=== PATIENT | female | born 1935 | race Caucasian/White ===

== ENCOUNTER → 2016-12-16 | Outpatient (CLI) | payer OTHER, MEDICARE ==
[~2016-12-16] MED LIST: ASPEC81 PO; ASPI81TA21 PO; ATEN-173 PO; ATOR10TA88 PO; CEPH500C2 PO; DXM/4 PO; FOLI1TAB7 PO; HYDR25TA4 PO; LEVO75TA5 PO; MELO7.5T5 PO; MELO7.5T6 PO; MIRT15TA2 PO; NTRGSL/4 UT; NXM/40 PO; ONDA8TAB6 PO; POLYSOL4 OP; PROC1TAB5 PO; SULF800T23 PO
--- NOTE | 2016-12-16 11:07 | DIAGNOSTIC IMAGING REPORT ---
PET/CT SKULL-THIGH CLINICAL HISTORY: LUNG CANCER COMPARISON STUDY: 08/17/2016 FINDINGS: The patient was injected with 15.4 mCi of F 18 labeled FDG. Findings standard induction phase, PET/CT scanning was performed from the skull base to the upper thigh region. Activity within the neck is felt to be physiologic. Within the chest, there is been interval decrease in the size of the FDG avid right lower lobe pulmonary mass which currently measures 4.8 x 2.5 cm. This has an SUV maximum of 8.2. There is been slight interval increase in the size of the small right pleural effusion. There is a 1 cm FDG avid subcarinal lymph node with SUV maximum of 4. This is slightly smaller in size. There are postmastectomy changes on the right. There is no evidence for FDG avid hepatic or adrenal gland activity. Within the abdomen and pelvis there is physiologic urinary tract and bowel activity. There is no pathologic skeletal activity. IMPRESSION: 1. Interval decrease in the size of the FDG avid right lower lobe pulmonary mass currently measuring 4.8 x 2.5 cm (6.3 x 4.2 cm in July 2016) 2. The right lower lobe pulmonary mass remains FDG avid with SUV maximum of 8.2. 3. Slight decrease in the size of the FDG avid subcarinal lymph node with SUV maximum of 4 (prior SUV maximum of 7). 4. Slight increase in the size of the small right pleural effusion which is mildly FDG avid with SUV maximum of 1.8 Electronically signed by: Dejuan Ochoa M.D. 12/16/2016 11:05 AM Dictated Date/Time: 12/16/2016 10:51 AM
== END | disposition home or self-care (01) ==
LOC: C.PET 08:59
PROVIDERS: ATTEND Internal Medicine Hematology
DX: C34.31 Malignant neoplasm of lower lobe, right bronchus or lung (principal); C79.31 Secondary malignant neoplasm of brain

== ENCOUNTER → 2017-01-04 | Outpatient (CLI) | payer OTHER, MEDICARE ==
[~2017-01-04] MED LIST changes: +GADAVIST IV PRN
--- NOTE | 2017-01-04 09:04 | DIAGNOSTIC IMAGING REPORT ---
MRI OF THE BRAIN WITHOUT AND WITH IV CONTRAST CLINICAL HISTORY: History of lung and breast cancer. COMPARISON STUDY: MRI the brain September 16, 2016. TECHNIQUE: Utilizing a 0.7 Shelia open magnet and dedicated coil, multiplanar, multiecho imaging of the brain was performed pre and postcontrast administration. IV administration of 4.5 mL of Gadavist contrast was uneventful. FINDINGS: No areas of restricted diffusion are present. No acute intracranial hemorrhage, midline shift or mass effect is present. An enhancing lesion at the morrison-white interface of the posterior right frontal lobe is again noted. On axial postcontrast images, this appears slightly more prominent than on exam of September 16, 2016 but on coronal post contrast images appears slightly less prominent. Overall, this is likely similar in size to prior exam, measuring 7 mm. Associated T2 hyperintensity within the adjacent brain parenchyma has increased in extent since prior examination. No additional intracranial lesions are identified on this exam. Ventricular system is stable. The basilar cisterns are patent. There are no extra-axial collections. Flow-voids for the major intracranial vessels are present with their no calvarial lesions. IMPRESSION: 1. No significant change in size of the 7 mm enhancing lesion within the right posterior frontal lobe since MRI of September 16, 2016. This lesion is highly suggestive of metastatic disease. Interval increase in mild associated edema. 2. No new lesions identified. Electronically signed by: Enrique De La Torre M.D. 01/04/2017 9:03 AM Dictated Date/Time: 01/04/2017 8:53 AM
== END | disposition home or self-care (01) ==
LOC: C.OPENMRI 07:57
PROVIDERS: ATTEND Radiology Radiation Oncology
DX: G93.9 Disorder of brain, unspecified (principal); Z85.118 Personal history of other malignant neoplasm of bronchus and lung; Z85.3 Personal history of malignant neoplasm of breast

== ENCOUNTER → 2017-03-10 | Outpatient (CLI) | payer OTHER, MEDICARE ==
[~2017-03-10] MED LIST changes: +ATOR10TA82 PO; -ATOR10TA88 PO; -GADAVIST IV PRN
--- NOTE | 2017-03-10 10:56 | DIAGNOSTIC IMAGING REPORT ---
PET/CT HISTORY: LUNG CANCER TECHNIQUE: PET/CT was performed from the base of the skull through the pelvis following the intravenous administration of 12.1 mCi of F18-FDG. Non-contrast CT imaging was performed over the same range without breath-hold for attenuation correction of PET images and anatomic correlation, but not for primary interpretation as it is not of standard diagnostic quality. CT DOSE: COMPARISON: PET CT 10/16/2017. FINDINGS: HEAD AND NECK: There is no FDG-avid disease or significant lymphadenopathy in the imaged portions of the head and the neck. CHEST: Slight decrease in size and FDG uptake right lung mass which measures 4.6 x 1.9 cm, previously measuring 4.8 x 2.5 cm. This demonstrates an SUV max of 4.3, previously demonstrating an SUV max of 8.2. Small right pleural effusion has slightly increased in size. Mild FDG uptake associated with the right hilar, precarinal, and subcarinal lymph nodes has also slightly improved. SUV max of the subcarinal node measures 3.5. The subcarinal lymph node measures approximately 1.3 cm in short axis diameter. This is not significantly changed. Stable fibrotic/scarlike densities within the right lung apex without significant FDG uptake. Prior right mastectomy. ABDOMEN/PELVIS: Below the diaphragm, tracer is distributed physiologically in the gastrointestinal and genitourinary tracts. There is no significant lymphadenopathy and no FDG-avid disease. MUSCULOSKELETAL: Abnormal trabecular pattern within the sternum, right ribs, right scapula, and proximal right humerus which remains unchanged. This does not demonstrate abnormal FDG uptake. This favors post radiation change. Focal area of destruction within the mid sternum is also stable and favors an area of radiation osteonecrosis. No abnormal FDG uptake. There is a stable 11 mm soft tissue nodule within the proximal shaft of the left humerus. This does not demonstrate abnormal FDG uptake IMPRESSION: 1. Slight decrease in size in and FDG uptake associated with the right lung mass. 2. Slight decrease in FDG uptake associated with the right hilar, precarinal, and subcarinal lymph nodes. 3. Increase in size in the small right pleural effusion. 4. Stable 11 mm soft tissue nodule within the proximal shaft of the left humerus. This does not demonstrate abnormal FDG uptake. Electronically signed by: Keagan Sterling M.D. 03/10/2017 10:53 AM Dictated Date/Time: 03/10/2017 10:33 AM
== END | disposition home or self-care (01) ==
LOC: C.PET 07:51
PROVIDERS: ATTEND Internal Medicine Hematology
DX: C34.31 Malignant neoplasm of lower lobe, right bronchus or lung (principal); C79.31 Secondary malignant neoplasm of brain

== ENCOUNTER → 2017-04-07 | Outpatient (CLI) | payer OTHER, MEDICARE ==
[2016-12-02 13:08] VITALS: BP 118/68; PULSE 88
[~2017-04-07] MED LIST changes: +ACET-1257 PO
[2017-04-07 13:28] VITALS: BP 105/87; PULSE 97; TEMP 36.7; O2SAT 98
--- NOTE | 2017-04-07 16:12 | Radiation Oncology Follow-Up ---
Radiation Oncology Follow-Up Date of Visit April 07, 2017. (Niru Haji PA-C) Reason For Visit One-month follow-up (Niru Haji PA-C) Radiation Completion Date SBRT 10/15/16 (Niru Haji PA-C) Diagnosis (1) Breast cancer Permanent Comment: Treatment Notes: Diagnosed at the age of 21. Treated with mastectomy and postmastectomy radiation therapy with no evidence of recurrence. Radiation therapy at [facility] Last Edited By: Emily Mtz on Sep 25, 2016 15 :05 (2) Lung cancer Stage: IV Permanent Comment: STAGING: Lung, RML, NSCLC, [id number], stage IV with solitary brain metastasis Treatment: Status post stereotactic radiation therapy completed 10/15/2016 received 1800 cGy Last Edited By: Niru Haji on Dec 02, 2016 14:37 (Niru Haji PA-C) History of Present Illness Ms. Cyr is an 81-year-old female with a remote history of right breast cancer treated with mastectomy and postmastectomy radiation therapy 60 years ago. More recently, she was complaining of a cough and did have a chest x-ray performed by her primary care physician which revealed a right lung mass. The patient then underwent CT staging scans of the chest abdomen pelvis on 2015 which showed a right lung mass, and large subcarinal lymph node and subcentimeter paratracheal lymph nodes but no evidence of distant metastatic disease. The patient underwent a PET/CT scan on 08/17/2016 which did reveal a 6.3 cm FDG avid right lower lobe mass consistent with bronchogenic malignancy. Also noted was a single FDG avid 1.7 cm subcarinal lymph node. There is no evidence of any distant metastatic disease. The patient was subsequently referred to Dr. Gleason who recommended a CT guided needle biopsy which completed in 08/21/2016 which revealed poorly differentiated non-small cell lung carcinoma. The patient was then brought for a bronchoscopy on 08/28/2016 to biopsy the subcarinal lymph node and this lymph node was biopsied in addition to levels L4, station 7 and station 10. The biopsies of all the lymph nodes were positive for metastatic poorly differentiated non-small cell lung carcinoma. The patient was subsequently referred to Dr. Gavino Mtz for consideration of upfront chemotherapy due to the patient's previous history of radiation therapy to the right chest. Dr. Mtz completed the staging workup with a MRI of the brain which was completed on 09/16/2016 which revealed a 7 mm enhancing lesion in the right frontal lobe with mild associated vasogenic edema. We are now seeing the patient in consultation discuss the role of radiation therapy. Currently, the patient's relatively well overall. She denies any headaches or any focal neurologic deficits. She states she continues to have a cough. She denies any hemoptysis. She denies any fevers, chills or night sweats. She other complaints. Her studies were reviewed and she was found to be a candidate for stereotactic radiation therapy. This was given 10/15/2016. She received 1800 cG (Niru Haji PA-C) Interim History She's been doing well over this past month. She denies any problems with headaches or dizziness. There is been no change in vision. No problems with nausea. She feels that she does have some slight increase in shortness of breath. She describes some orthostatic changes with standing quickly. She is followed closely in medical oncology. She has had recheck scanning. She had a PET scan 04/09/2017. This showed slight decrease in size and FDG uptake associated with the right lung mass. Slight decrease in FDG uptake associated with right hilar, precarinal, and subcarinal lymph nodes. Increase in size in the small right pleural effusion. Stable 11 mm soft tissue nodule within the proximal shaft of the left humerus. This does not demonstrate abnormal FDG uptake. She has a lesion of her skin of the lower sternum. This is been followed. She had a biopsy performed 03/11/2017. This revealed spongiosis with intraepidermal neutrophils and papillary dermal edema with mixed dermal inflammatory infiltrate. There are 2 small wounds are continuing to heal. She had a recheck MRI of the brain 01/04/2017. Showed no significant change in the size of the 7 mm enhancing lesion within the right posterior frontal lobe since MRI of 09/16/2016. (Niru Haji PA-C) Allergies Coded Allergies: Nickel (Verified Allergy, Severe, rash, 08/28/16) Ibuprofen (Verified Allergy, Intermediate, HIVES, 08/28/16) PER RECORDS Penicillins (Verified Allergy, Intermediate, RASH, 08/28/16) Latex1 -Allergic Contact Dermititis (Verified Allergy, Mild, RASH, 08/28/16 ) Adhesives (Verified Adverse Reaction, Intermediate, RASH, 08/28/16) PER RECORDS Lisinopril (Verified Adverse Reaction, Mild, COUGH, 08/28/16) PER RECORDS Home Medications Scheduled Aspirin Enteric Coated (Ecotrin Or Generic *), 81 MG PO QAM Atenolol (Tenormin), 25 MG PO QAM Atorvastatin (Lipitor), 10 MG PO AFTERNOON Dexamethasone (Decadron), 4 TAB PO DAILY Esomeprazole Magnesium (Nexium), 40 MG PO QAM Folic Acid (Folvite), 1 TAB PO DAILY Levothyroxine Sodium (Levothyroxine Sodium), 1 TAB PO DAILY Nitroglycerin (Nitrostat), 0.4 MG UT PRN Scheduled PRN Meloxicam (Mobic), 7.5 MG PO DAILY PRN for Pain Mirtazapine Soltab (Remeron Soltab), 15 MG PO HS PRN for Sleep Ondansetron Hcl (Zofran), 8 MG PO TID PRN for Nausea Polyethylene Glycol-Propylene (Systane), 1 DROPS OP QID PRN for Documentation Prochlorperazine Maleate (Compazine), 1 TAB PO Q6 PRN for Nausea Review of Systems Gastrointestinal: Symptoms: WNL Oral: Symptoms: No Problems Respiratory: Symptoms: WNL Other Respiratory: MANDEL, dry cough at times Urinary: Symptoms: WNL, Nocturia Comments: Nocturia x 5 Skin: Symptoms: No Problems Other Skin Symptoms: " occ skin is real sensative " (Niru Haji PA-C) Physical Exam Vital Signs Date Time Temp Pulse Resp B/P Pulse Ox O2 Delivery O2 Flow Rate FiO2 04/07/17 13:28 36.7 97 16 105/87 98 Pain: Side: Bilateral Patient Pain Scale: 0 - 10 Initial Pain Intensity: 0.0 Fatigue: None General Appearance: no apparent distress Eyes: normal inspection, EOMI ENT: normal ENT inspection, hearing grossly normal Neck: no adenopathy Respiratory/Chest: lungs clear, no respiratory distress, no accessory muscle use, + decreased breath sounds, + pertinent finding (raised firm lesion of the lower sternum. 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 SC: C.PET Att Phy: Gavino Mtz M.D. Report #: [id number] Svetlana Phy: Joie Mtz M.D. Test: PETCTST Admit Phy: Occupational Therapy Director: DAMIR Interpreting Phy: Keagan Sterling MD Diagnosis: MALIGNANT NEOPLASM,LOWER LOBE,R LUNG Ordering Phy: Gavion Mtz M.D. Service Date: 03/10/17 Admit Date: 03/10/17 MNE: [id number] CONF: DICTATED BY: Keagan Sterling M.D.]] CC: Gavino Mtz M.D. Patel, Manisha N., M.D. Endcc: [~ rep ct add3]] PET/CT HISTORY: LUNG CANCER TECHNIQUE: PET/CT was performed from the base of the skull through the pelvis following the intravenous administration of 12.1 mCi of F18-FDG. Non-contrast CT imaging was performed over the same range without breath-hold for attenuation correction of PET images and anatomic correlation, but not for primary interpretation as it is not of standard diagnostic quality. CT DOSE: COMPARISON: PET CT 10/16/2017. FINDINGS: HEAD AND NECK: There is no FDG-avid disease or significant lymphadenopathy in the imaged portions of the head and the neck. CHEST: Slight decrease in size and FDG uptake right lung mass which measures 4.6 x 1.9 cm, previously measuring 4.8 x 2.5 cm. This demonstrates an SUV max of 4.3, previously demonstrating an SUV max of 8.2. Small right pleural effusion has slightly increased in size. Mild FDG uptake associated with the right hilar, precarinal, and subcarinal lymph nodes has also slightly improved. SUV max of the subcarinal node measures 3.5. The subcarinal lymph node measures approximately 1.3 cm in short axis diameter. This is not significantly changed. Stable fibrotic/scarlike densities within the right lung apex without significant FDG uptake. Prior right mastectomy. ABDOMEN/PELVIS: Below the diaphragm, tracer is distributed physiologically in the gastrointestinal and genitourinary tracts. There is no significant lymphadenopathy and no FDG-avid disease. MUSCULOSKELETAL: Abnormal trabecular pattern within the sternum, right ribs, right scapula, and proximal right humerus which remains unchanged. This does not demonstrate abnormal FDG uptake. This favors post radiation change. Focal area of destruction within the mid sternum is also stable and favors an area of radiation osteonecrosis. No abnormal FDG uptake. There is a stable 11 mm soft tissue nodule within the proximal shaft of the left humerus. This does not demonstrate abnormal FDG uptake IMPRESSION: 1. Slight decrease in size in and FDG uptake associated with the right lung mass. 2. Slight decrease in FDG uptake associated with the right hilar, precarinal, and subcarinal lymph nodes. 3. Increase in size in the small right pleural effusion. 4. Stable 11 mm soft tissue nodule within the proximal shaft of the left humerus. This does not demonstrate abnormal FDG uptake. Electronically signed by: Keagan Sterling M.D. 03/10/2017 10:53 AM Dictated Date/Time: 03/10/2017 10:33 AM Patient: THOMAS CYR Address1: [address] [place] [address] Rec: [id number] Address2: [facility] ID: [id number] [facility] Zip: [place] [address] Date: 1935 Sex: F Room/Bed: Ref Phy: Joie Mtz M.D. SC: WEN Att Phy: Niru Haji PA-C Report #: [id number] Svetlana Phy: Joie Mtz M.D. Test: [facility] Admit Phy: Occupational Therapy Director: TANO Interpreting Phy: Enrique De La Torre MD Diagnosis: HX OF LUNG CA, BREAST CA Ordering Phy: Niru Haji PA-C Service Date: 01/04/17 Admit Date: 01/04/17 MNE: [id number] CONF: DICTATED BY: Enrique De La Torre MD]] CC: Niru Haji PA-C Patel, Manisha N., M.D. Endcc: [~ rep ct add3]] MRI OF THE BRAIN WITHOUT AND WITH IV CONTRAST CLINICAL HISTORY: History of lung and breast cancer. COMPARISON STUDY: MRI the brain September 16, 2016. TECHNIQUE: Utilizing a 0.7 Shelia open magnet and dedicated coil, multiplanar, multiecho imaging of the brain was performed pre and postcontrast administration. IV administration of 4.5 mL of Gadavist contrast was uneventful. FINDINGS: No areas of restricted diffusion are present. No acute intracranial hemorrhage, midline shift or mass effect is present. An enhancing lesion at the morrison-white interface of the posterior right frontal lobe is again noted. On axial postcontrast images, this appears slightly more prominent than on exam of September 16, 2016 but on coronal post contrast images appears slightly less prominent. Overall, this is likely similar in size to prior exam, measuring 7 mm. Associated T2 hyperintensity within the adjacent brain parenchyma has increased in extent since prior examination. No additional intracranial lesions are identified on this exam. Ventricular system is stable. The basilar cisterns are patent. There are no extra-axial collections. Flow-voids for the major intracranial vessels are present with their no calvarial lesions. IMPRESSION: 1. No significant change in size of the 7 mm enhancing lesion within the right posterior frontal lobe since MRI of September 16, 2016. This lesion is highly suggestive of metastatic disease. Interval increase in mild associated edema. 2. No new lesions identified. Electronically signed by: Enrique De La Torre M.D. 01/04/2017 9:03 AM Dictated Date/Time: 01/04/2017 8:53 AM (Niru Haji PA-C) Assessment & Plan Plan: The above studies were reviewed. Patient was scheduled for recheck MRI of the brain. This will be performed on 04/19/2017. She'll be notified as to results plan we'll plan to have her return in 4 months with a MRI prior to that visit. Continue follow-up with Dr. Mtz medical oncology. She continues on chemotherapy. Additional scanning per Dr. Ena Mtz. She'll call our office if she has any questions or concerns in the interim. (Niru Haji PA-C) I agree with note created by Niru Haji PA-C. I reviewed the patient's chart and information with her. I have examined and evaluated the patient. I reviewed relevant clinical information and answered the patient's and/or family' s questions. (Veeral. Mtz MD) Total Time In Follow-Up I spent 20 minutes speaking to the patient and performing examination. I spent 15 minutes reviewing information in completing this note. (Niru Haji PA-C) I spent 15 minutes examining and counseling the patient. (Veeral. Mtz MD) Copy To Gavino Mtz M.D.; Joie Mtz M.D.; Aneesh Gleason MD
== END | disposition home or self-care (01) ==
LOC: C.ONC 13:09
PROVIDERS: ATTEND Physician Assistant Medical
DX: Z08 Encounter for follow-up examination after completed treatment for malignant neoplasm (principal); Z92.3 Personal history of irradiation; Z85.118 Personal history of other malignant neoplasm of bronchus and lung; Z85.3 Personal history of malignant neoplasm of breast

== ENCOUNTER → 2017-04-19 | Outpatient (CLI) | payer OTHER, MEDICARE ==
[~2017-04-19] MED LIST changes: +GADAVIST IV PRN
--- NOTE | 2017-04-19 13:08 | DIAGNOSTIC IMAGING REPORT ---
Brain MRI WITH AND WITHOUT CONTRAST HISTORY: METASTATIC LUNG CA TO BRAIN TECHNIQUE: Multiplanar multisequence MRI of the brain was performed both before and after the intravenous administration of contrast. COMPARISON STUDY: Brain MRI 01/04/2017. FINDINGS: Decrease in size in a 5 mm enhancing lesion within the right precentral gyrus. This previous measured 7 mm. No new enhancing lesions identified within the brain. No hematoma, midline shift, or acute infarct. The paranasal sinuses and mastoid air cells are clear. The major vascular flow-voids at the skull base are well-maintained. Mild atrophic changes within the brain. The vasogenic edema surrounding the enhancing lesion has also improved. IMPRESSION: Decrease in size in the 5 mm enhancing lesion within the right posterior frontal lobe. The surrounding vasogenic edema has also improved. No new metastatic lesions identified. Electronically signed by: Keagan Sterling M.D. 04/19/2017 1:07 PM Dictated Date/Time: 04/19/2017 1:03 PM
== END | disposition home or self-care (01) ==
LOC: C.OPENMRI 10:46
PROVIDERS: ATTEND Physician Assistant Medical
DX: C79.31 Secondary malignant neoplasm of brain (principal); C34.31 Malignant neoplasm of lower lobe, right bronchus or lung

== ENCOUNTER → 2017-06-14 | Outpatient (CLI) | payer OTHER, MEDICARE ==
[~2017-06-14] MED LIST changes: -ACET-1257 PO; -ATOR10TA82 PO; +ATOR10TA88 PO; -GADAVIST IV PRN
--- NOTE | 2017-06-14 13:26 | DIAGNOSTIC IMAGING REPORT ---
ADDENDUM Focal activity in the region of the anterior floor the mouth is felt to most likely be artifactual either related to the presence of amalgam or muscle activity during the exam. Correlation with physical exam to exclude oral cavity lesion. Electronically signed by: Petros Barton M.D. 06/14/2017 1:32 PM Dictated Date/Time: 06/14/2017 1:31 PM ORIGINAL REPORT PET/CT CLINICAL HISTORY: 82-year-old female with history of non-small cell lung carcinoma. TECHNIQUE: PET/CT was performed from the base of the skull through the pelvis following the intravenous administration of 13.21 mCi of F18-FDG. Non-contrast CT imaging was performed over the same range without breath-hold for attenuation correction of PET images and anatomic correlation, but not for primary interpretation as it is not of standard diagnostic quality. CT DOSE: 1156.30 mGy-cm. COMPARISON: 03/10/2017. FINDINGS: HEAD AND NECK: There is no FDG-avid disease or significant lymphadenopathy in the imaged portions of the head and the neck. Left supraclavicular subcentimeter lymph node demonstrates mildly increased metabolic activity with a max SUV of 2.6. This was not present on prior exam. CHEST: Postsurgical changes of right mastectomy. Atherosclerosis of the aortic arch. Mildly enlarged heart. Aortic valve and coronary artery calcification. Small pericardial effusion. FDG avid subcarinal lymph node is poorly delineated and not easily measured (max SUV 4.2), previously 1.3 cm in the short axis (max SUV 3.5). Slight interval increase in size of the now moderate right pleural effusion, which is photopenic. Interval development of trace left pleural effusion. Dominant right lung mass extends from the region of the right hilum peripherally and measures 5.2 x 2.9 cm (max SUV 6.3), previously 4.6 x 1.9 (max SUV 4.3). Reticulation at the right apex likely represents cicatrizing atelectasis from post radiation change, stable from prior. No new FDG avid pulmonary nodule. ABDOMEN/PELVIS: Below the diaphragm, tracer is distributed physiologically in the gastrointestinal and genitourinary tracts. There is no significant lymphadenopathy and no FDG-avid disease. Congenital hypoplasia of the medial segments of the left hepatic lobe. Subcentimeter hypodensity in the right hepatic lobe is photopenic, likely hepatic cyst or hamartoma. Mild bilateral pelviectasis with urothelial thickening, unchanged. Distended bladder. Sigmoid diverticulosis. Inspissated material in the distal small bowel likely suggest delayed transit. No bowel obstruction. Small hiatal hernia. Degenerative changes in the spine. MUSCULOSKELETAL: Previously noted heterogeneity of the trabecular pattern within the sternum, right ribs, right scapula, and proximal right humerus likely postradiation change given the photopenic FDG uptake. 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 Stable 11 mm soft tissue nodule within the proximal shaft of the left humerus, which is not metabolically active. IMPRESSION: 1. Slight interval increase in size of the primary right lung neoplasm with slight increase FDG avidity combined with slight increase FDG avidity of a metastatic subcarinal lymph node suggests progression of disease. Additionally, new FDG avid left supraclavicular lymph node. 2. Increasing moderate right pleural effusion new trace left pleural effusion. 3. Persistent urothelial thickening could suggest cystitis, now chronic. Correlate with urinalysis. Electronically signed by: Petros Barton M.D. 06/14/2017 1:25 PM Dictated Date/Time: 06/14/2017 1:06 PM
== END | disposition home or self-care (01) ==
LOC: C.PET 07:58
PROVIDERS: ATTEND Internal Medicine Hematology
DX: J90 Pleural effusion, not elsewhere classified (principal); C34.31 Malignant neoplasm of lower lobe, right bronchus or lung; C79.31 Secondary malignant neoplasm of brain

== ENCOUNTER → 2017-06-18 | Outpatient (CLI) | payer OTHER, MEDICARE ==
--- NOTE | 2017-06-18 09:29 | DIAGNOSTIC IMAGING REPORT ---
CHEST 2 VIEWS ROUTINE CLINICAL HISTORY: J90 Pleural [id number] pleural effusion COMPARISON STUDY: 08/28/2016 FINDINGS: Unchanging mass right base. Small right pleural effusion. Slight decrease in density right apex. Left lung remains generally clear. Slight increase in volume of right effusion. IMPRESSION: Slight increase in volume of right effusion. Unchanging to slightly diminished density right apex with stable masslike changes right base The above report was generated using voice recognition software. It may contain grammatical, syntax or spelling errors. Electronically signed by: Jhon Rockwell M.D. 06/18/2017 9:28 AM Dictated Date/Time: 06/18/2017 9:26 AM
== END | disposition home or self-care (01) ==
LOC: C.RAD1850 08:54
PROVIDERS: ATTEND Surgery
DX: J90 Pleural effusion, not elsewhere classified (principal)

== ENCOUNTER 2017-06-24 12:25 | Day surgery (SDC) | payer OTHER, MEDICARE ==
[~2017-06-24] VITALS: Ht 170.2 cm; Wt 47.0 kg
[~2017-06-24 12:25] MED LIST changes: -ASPI81TA21 PO; -ATOR10TA88 PO; -CEPH500C2 PO; -HYDR25TA4 PO; -LEVO75TA5 PO; -MELO7.5T6 PO; -NTRGSL/4 UT; -NXM/40 PO; -SULF800T23 PO
--- NOTE | 2017-06-24 12:47 | Discharge Instructions ---
Discharge Instructions Date of Service Jun 24, 2017. Visit Reason for Visit: Pleural Effusion *Right* Discharge Discharge Diagnosis / Problem: Pleural Effusion *Right* Discharge Goals Goal(s): Learn about illness Activity Recommendations Activity Limitations: resume your previous activity (in 24 hours) Anesthesia . Post Anesthesia Instructions: If you have had General Anesthesia or IV Sedation: * Do not drive today. * Resume driving when surgeon permits. * Do not make important decisions or sign legal documents today. * Call surgeon for: 1. Temperature elevations greater than 101 degrees F. 2. Uncontrollable pain. 3. Excessive bleeding. 4. Persistent nausea and vomiting. 5. Medication intolerance (nausea, vomiting or rash). * For nausea and vomiting use only clear liquids such as: tea, soda, bouillon until nausea subsides, then gradually increase diet as tolerated. * If you have any concerns or questions, call your surgeon's office. If physician is unavailable and it is an emergency, call 911 or go to the nearest emergency room. . Instructions / Follow-Up Instructions / Follow-Up 1. Keep your scheduled appointment with Dr. Gleason on July 01, 2017 @9:45 am. Go to hospital one hour before appointment. to have a chest x-ray taken Diet Recommendations Recommended Home Diet: resume previous diet Pending Studies Studies pending at discharge: no Medical Emergencies . Who to Call and When: Medical Emergencies: If at any time you feel your situation is an emergency, please call 911 immediately. . Non-Emergent Contact Non-Emergency issues call your: Surgeon Call Non-Emergent contact if: you have a fever, your pain is not controlled . . "Provider Documentation" section prepared by Lisandro Galloway. .
[2017-06-24 12:55] VITALS: BP 144/69; PULSE 94; TEMP 36.6; O2SAT 98; Ht 170.2 cm; Wt 47.0 kg
[2017-06-24 13:40] VITALS: BP 131/63; PULSE 94; TEMP 37.2; O2SAT 98
[2017-06-24 13:54] LABS: ISTAT ARTERIAL BLOOD GAS HCO3 26 meq/L (19-24); ISTAT ARTERIAL BLOOD GAS PCO2 37 mmHg (35-46); ISTAT ARTERIAL BLOOD GAS PO2 77 mmHg (80-95); ISTAT ARTERIAL BLOOD GAS pH 7.46 (7.35-7.45); ISTAT CARBON DIOXIDE 27 mEq/l (24-31); ISTAT DELIVERY SYSTEM Room Air; ISTAT SITE R Radial
[2017-06-24 13:58] VITALS: BP 121/61; PULSE 90; TEMP 36.8; O2SAT 97
--- NOTE | 2017-06-24 14:14 | DIAGNOSTIC IMAGING REPORT ---
CHEST ONE VIEW PORTABLE CLINICAL HISTORY: 82 years-old Female presenting with s/p thoracentesis. TECHNIQUE: Portable upright AP view of the chest was obtained. COMPARISON: 06/18/2017. FINDINGS: Atherosclerosis of the aortic arch with tortuosity of the ascending aorta. Elevation of the right hemidiaphragm. Increased density of the right lower lung mass likely secondary to volume loss due to new small right pneumothorax. Persistent right pleural fluid. Left lung and pleural space essentially clear. Degenerative changes of the right glenohumeral joint. Chronic deformity of the right clavicle. IMPRESSION: 1. Interval development of new small right pneumothorax with persistent right pleural fluid. 2. Apparent increased density of the known right lung mass likely due to right lung volume loss. The report will be called/faxed according to standard departmental protocol. Electronically signed by: Petros Barton M.D. 06/24/2017 2:12 PM Dictated Date/Time: 06/24/2017 2:08 PM
[2017-06-24 14:24] VITALS: BP_SYST 119; BP_SYST 137; BP_DIAS 62; BP_DIAS 66; PULSE 88; PULSE 90; TEMP 36.8; O2SAT 97
[2017-06-24 15:23] LABS: PLEURAL FLUID TOTAL PROTEIN 4.3 g/dl
[2017-06-24 15:50] LABS: PLEURAL FLUID APPEARANCE CLOUDY; PLEURAL FLUID COLOR AMBER; PLEURAL FLUID SOURCE RIGHT PLEURAL; PLEURAL FLUID WBC (A) 1022 /uL
[2017-06-24 15:51] LABS: PLEURAL FLUID POLYNUC 7.6 %
[2017-06-24 15:52] LABS: PLEURAL FLUID MONONUC RELAT 92.4 %
--- NOTE | 2017-06-24 21:59 | OPERATIVE REPORT ---
DATE OF OPERATION: 06/24/2017 PROCEDURE: Right thoracentesis. SURGEON: Dr. Gleason. MAINTENANCE OF WAY SUPERINTENDENT: RUPESH Blackwell. ANESTHESIA: Local. SPECIFICS OF PROCEDURE: A right thoracentesis under ultrasound guidance. PROCEDURE: The patient was brought to the medical treatment unit and seated on the side of the bedside stretcher. An ultrasound was used to localize a window. There really was not much fluid. Her right hemidiaphragm was elevated a good deal, which accounts for her x-ray findings. There was fluid, though. A window was selected medial to the scapula and she was prepped and draped in the usual sterile fashion. A 25-guage needle and 1% Xylocaine was used to anesthetize the skin and subcutaneous tissues. A large bore needle was used to anesthetize the deeper tissues and then free flowing fluid was obtained. A guidewire was inserted and needle removed. A triple lumen catheter was slid over the guidewire and the guidewire removed and approximately 500 mL of a rust-colored serous fluid was drained. She really had very little in the way of pain. We removed the catheter. She had no bleeding. A chest x-ray showed better expansion of her lung. The chest x-ray did show an area, which, I believe, represents trapped lung laterally. it coincides with the fluid, which was in there before. I am not concerned about this. She tolerated it well. We will see her back next week with an x-ray and to go over her results. I attest to the content of the Intraoperative Record and any orders documented therein. Any exception s are noted below.
[2017-08-06] MEDS ORDERED: ATOR10TA88 PO (07:42)
[2017-08-06] MEDS ORDERED: NTRGSL/4 UT (09:00)
[2017-08-06] MEDS ORDERED: NXM/40 PO (12:41)
[2017-08-06] MEDS ORDERED: LEVO75TA5 PO (13:25)
[2017-08-10] MEDS ORDERED: DXM/4 PO (08:24)
[2017-08-10] MEDS ORDERED: MELO7.5T6 PO (08:24)
[2017-08-10] MEDS ORDERED: ONDA8TAB6 PO (08:24)
[2017-08-10] MEDS ORDERED: MIRT15TA2 PO (08:24)
[2017-08-13] MEDS ORDERED: SULF800T23 PO (14:31)
[2017-08-24] MEDS ORDERED: SULF800T23 PO (09:08)
[2017-08-30] MEDS ORDERED: SULF800T23 PO (13:20)
== END 2017-06-24 15:00 | disposition home or self-care (01) ==
LOC: C.ACU 12:25
PROVIDERS: ATTEND Surgery
DX: J90 Pleural effusion, not elsewhere classified (principal); J93.9 Pneumothorax, unspecified; R91.8 Other nonspecific abnormal finding of lung field

== ENCOUNTER → 2017-06-30 | Outpatient (CLI) | payer OTHER, MEDICARE ==
[~2017-06-30] MED LIST changes: +ASPI81TA21 PO; +ATOR10TA88 PO; +CEPH500C2 PO; -FOLI1TAB7 PO; +HYDR25TA4 PO; +LEVO75TA5 PO; -MELO7.5T5 PO; +MELO7.5T6 PO; +NTRGSL/4 UT; +NXM/40 PO; +SULF800T23 PO
--- NOTE | 2017-06-30 14:13 | DIAGNOSTIC IMAGING REPORT ---
CHEST 2 VIEWS ROUTINE CLINICAL HISTORY: J90 Pleural [id number] COMPARISON STUDY: 06/24/2017 FINDINGS: The heart is normal in size. There is increasing right pleural effusion. There is a right midlung zone mass. There is associated right middle lobe volume loss. There is diffuse interstitial thickening with a subpleural distribution.[ IMPRESSION: 1. Persistent right midlung zone pulmonary mass measuring approximately 6.4 cm 2. Increasing right pleural effusion 3. Suspected underlying interstitial lung disease Electronically signed by: Dejuan Ochoa M.D. 06/30/2017 2:11 PM Dictated Date/Time: 06/30/2017 2:09 PM
== END | disposition home or self-care (01) ==
LOC: C.RAD1850 13:53
PROVIDERS: ATTEND Surgery
DX: J90 Pleural effusion, not elsewhere classified (principal); R91.8 Other nonspecific abnormal finding of lung field

== ENCOUNTER → 2017-07-06 | Outpatient (CLI) | payer OTHER, MEDICARE ==
--- NOTE | 2017-07-06 15:05 | DIAGNOSTIC IMAGING REPORT ---
VENOUS DOPPLER LW EXT BILAT HISTORY: Pain. Edema. B/L LEG SWELLING *STAT COMPARISON STUDY: None. FINDINGS: There is normal compressibility, flow, and augmentation within the bilateral lower extremity deep venous systems. IMPRESSION: No DVT within the right or left lower extremity. note is made of a 4 x 3 cm popliteal cyst posterior to the left knee The above report was generated using voice recognition software. It may contain grammatical, syntax or spelling errors. Electronically signed by: Jhon Rockwell M.D. 07/06/2017 3:04 PM Dictated Date/Time: 07/06/2017 3:03 PM
== END | disposition home or self-care (01) ==
LOC: C.ULTR 14:16
PROVIDERS: ATTEND Internal Medicine Hematology
DX: I80.292 Phlebitis and thrombophlebitis of other deep vessels of left lower extremity (principal); C34.31 Malignant neoplasm of lower lobe, right bronchus or lung; I82.402 Acute embolism and thrombosis of unspecified deep veins of left lower extremity; M71.22 Synovial cyst of popliteal space [Baker], left knee

== ENCOUNTER → 2017-07-21 | Outpatient (CLI) | payer OTHER, MEDICARE ==
[~2017-07-21] MED LIST changes: +GADAVIST IV PRN
--- NOTE | 2017-07-21 16:27 | DIAGNOSTIC IMAGING REPORT ---
MRI OF THE BRAIN COMBO CLINICAL HISTORY: Metastatic lung cancer. COMPARISON STUDY: MRI of the brain dated 04/19/2017. TECHNIQUE: MRI of the brain was performed utilizing various T1 and T2-weighted sequences in the axial, sagittal, and coronal planes. Contrast-enhanced sequences were acquired following the administration of 5 cc of Gadavist. The Examination is modestly degraded by motion artifact. FINDINGS: Brain parenchyma: There are age-related involutional changes noting mild subcortical and periventricular microangiopathic disease. There is no hemorrhage or mass effect. There is no restricted diffusion typical for acute ischemia. There is a 4 mm enhancing lesion identified in the right parietal cortex seen on axial image #95 of the high-resolution postcontrast images. Mild surrounding soft tissue edema is noted. Apparent restricted diffusion is noted within this lesion and may represent T2 shine through. No additional enhancing lesions are identified. No extra-axial fluid collection is seen. The cerebellar tonsils are normal in configuration. Ventricles, sulci, and cisterns: Prominent secondary to involutional change. Pituitary and sella: Unremarkable. Intracranial vasculature: Normal flow voids are maintained at the skull base. Mild dolichoectasia of the basilar artery is similar to previous. Orbits: The bony orbits are grossly intact. Orbital contents are normal in appearance noting a right ocular lens implant. Sinuses and mastoids: Clear. Calvarium: Unremarkable. Cervical cord: Partially visualized cervical spinal cord is normal in morphology and signal intensity. IMPRESSION: 1. There has been a modest decrease in size in a 4 mm enhancing lesion in the right parietal cortex as compared to 04/19/2017. Mild surrounding edema is similar to previous. 2. There are no new enhancing metastatic lesions identified. 3. There is no hemorrhage, midline shift, or evidence of acute ischemia. Electronically signed by: Cj Velasquez M.D. 07/21/2017 4:26 PM Dictated Date/Time: 07/21/2017 4:18 PM
== END | disposition home or self-care (01) ==
LOC: C.MRI 14:34
PROVIDERS: ATTEND Physician Assistant Medical
DX: C34.31 Malignant neoplasm of lower lobe, right bronchus or lung (principal); C79.31 Secondary malignant neoplasm of brain

== ENCOUNTER → 2017-08-02 | Outpatient (CLI) | payer OTHER, MEDICARE ==
[~2017-08-02] MED LIST changes: -GADAVIST IV PRN
--- NOTE | 2017-08-02 14:51 | DIAGNOSTIC IMAGING REPORT ---
CHEST 2 VIEWS ROUTINE HISTORY: 82 years-old Female J90 Pleural effusion pleural effusion with cough. Follow-up study. COMPARISON: PET CT 06/14/2017, chest radiograph 2016. TECHNIQUE: Portable upright AP view of the chest FINDINGS: Cardiac silhouette is within normal limits. There is atherosclerosis of the aorta. Right apical pleural parenchymal scarring is redemonstrated with moderate right-sided pleural effusion mildly increased from comparison. Previously noted FDG avid mass of the right lower lobe is again seen with inferior border partially secured measuring approximately 6.8 cm transversely. There is persistent background interstitial coarsening. Bones are demineralized appear grossly intact. IMPRESSION: 1. Persistent right mid lung mass with mildly increased size of moderate right pleural effusion. 2. Chronic background interstitial coarsening. The above report was generated using voice recognition software. It may contain grammatical, syntax or spelling errors. Electronically signed by: Jose Lazaro M.D. 08/02/2017 2:50 PM Dictated Date/Time: 08/02/2017 2:47 PM
== END | disposition home or self-care (01) ==
LOC: C.RAD 14:02
PROVIDERS: ATTEND Physician Assistant
DX: J90 Pleural effusion, not elsewhere classified (principal); R91.8 Other nonspecific abnormal finding of lung field

== ENCOUNTER 2017-08-06 14:28 | Emergency (ER) | payer OTHER, MEDICARE ==
[~2017-08-06] VITALS: Ht 170.2 cm; Wt 48.7 kg
[~2017-08-06 14:28] MED LIST changes: -ASPI81TA21 PO; -CEPH500C2 PO; -DXM/4 PO; -HYDR25TA4 PO; -MELO7.5T6 PO; -MIRT15TA2 PO; -SULF800T23 PO
[2017-08-06 14:37] VITALS: TEMP 36.4; Ht 170.2 cm; Wt 48.7 kg
[2017-08-06] MEDS ORDERED: CEFTRIAXONE SOD INJ 1 GM ADDVIAL IV STA (15:09)
[2017-08-06 15:37] LABS: COMPLETE YES; EOS % 0.6 %; HEMATOCRIT 30.7 % (37-47); IG% 0.4 %; LYMPH % 16.8 %; LYMPH ABS # 0.79 K/uL (1.2-3.4); MEAN CELL VOLUME 92.7 fL (80-100); MEAN CORPUSCULAR HEMOGLOBIN 28.7 pg (25-34); MEAN CORPUSCULAR HGB CONC 30.9 g/dl (32-36); MEAN PLATELET VOLUME 8.1 fL (7.4-10.4); NEUT % 69.2 %; PLATELET COUNT 244 K/uL (130-400); RED BLOOD COUNT 3.31 M/uL (4.2-5.4); WHITE BLOOD COUNT 4.71 K/uL (4.8-10.8)
[2017-08-06] MEDS ORDERED: ATEN-173 PO (15:50)
[2017-08-06] MEDS ORDERED: HYDR25TA4 PO (15:50)
[2017-08-06] MEDS ORDERED: ASPI81TA21 PO (15:50)
[2017-08-06 16:01] LABS: BUN/CREATININE RATIO 13.9 (10-20); CALCIUM 8.7 mg/dl (8.5-10.1); CREATININE 0.82 mg/dl (0.60-1.20); POTASSIUM 3.5 mmol/L (3.5-5.1)
[2017-08-06] MEDS ORDERED: CEPH500C2 PO (16:28)
--- NOTE | 2017-08-06 16:29 | EMERGENCY ROOM VISIT NOTE ---
History First contact with patient: 14:58 Chief Complaint: WOUND INFECTION Stated Complaint: WOUND INFECTION ON CHEST History of Present Illness The patient is a 82 year old female who presents to the Emergency Room with complaints of a wound on her chest. The patient states that she has had this for a long time. And it has been checked in the past. She went to a certified medical dosimetrist in February without any abnormal findings. She states today when she went to her drafting technician, Dr. Heard he thought that she should be checked. The patient does admit that there is a little purulent drainage for the past few days. The patient denies any fever. She states the redness is no different than it always is. She denies any pain in the area. The patient is a cancer patient and denies having any radiation in this area. Her last chemotherapy treatment was on Wednesday. Her next chemotherapy is scheduled for August 17. She had labs drawn on Wednesday but that was at [facility]. Review of Systems 10 system review was performed and was negative unless stated otherwise history of present illness. Past Medical/Surgical History Medical Problems: (1) Breast cancer (2) Lung cancer Appendectomy, tonsillectomy Social History Smoking Status: Never Smoker Marital Status: Housing Status: lives with family Occupation Status: retired Current/Historical Medications Scheduled Aspirin Enteric Coated (Ecotrin Or Generic), 81 MG PO DAILY Atorvastatin (Lipitor), 10 MG PO AFTERNOON Esomeprazole Magnesium (Nexium), 40 MG PO QAM Levothyroxine Sodium (Levothyroxine Sodium), 1 TAB PO DAILY Nitroglycerin (Nitrostat), 0.4 MG UT PRN Scheduled PRN Hydrochlorothiazide (Hctz), 25 MG PO DAILY PRN for edema Polyethylene Glycol-Propylene (Systane), 1 DROPS OP QID PRN for Documentation Miscellaneous Medications Atenolol (Tenormin), 25 MG PO Physical Exam Vital Signs Date Time Temp Pulse Resp B/P (MAP) Pulse Ox O2 Delivery O2 Flow Rate FiO2 08/06/17 14:37 36.4 105 20 132/67 97 Room Air Physical Exam GENERAL: Thin 82-year-old female appears in no acute distress. MENTAL Status: Alert and oriented 3. NECK: Supple, no lymphadenopathy noted. No carotid bruits noted. LUNGS: Clear auscultation without wheezes rales or rhonchi. Breath sounds are distant bilaterally. CARDIAC: Regular rate and rhythm without murmur. Pulses is full and equal throughout. CHEST WALL: There is a 3 cm scabbed wound on the right side of the chest wall just lateral to the sternum. There is a small amount of purulent drainage. There is also some redness surrounding this area but there is no increased temperature to touch. Remainder chest wall is unremarkable. Medical Decision & Procedures Laboratory Results 08/06/17 15:25 Red Blood Count 3.31, Mean Corpuscular Volume 92.7, Mean Corpuscular Hemoglobin 28.7, Mean Corpuscular Hemoglobin Concent 30.9, Mean Platelet Volume 8.1, Neutrophils (%) (Auto) 69.2, Lymphocytes (%) (Auto) 16.8, Monocytes (%) (Auto) 13.0, Eosinophils (%) (Auto) 0.6, Basophils (%) (Auto) 0.0, Neutrophils # (Auto ) 3.26, Lymphocytes # (Auto) 0.79, Monocytes # (Auto) 0.61, Eosinophils # (Auto ) 0.03, Basophils # (Auto) 0.00 08/06/17 15:25 Test 08/06/17 15:25 White Blood Count 4.71 K/uL (4.8-10.8) Red Blood Count 3.31 M/uL (4.2-5.4) Hemoglobin 9.5 g/dL (12.0-16.0) Hematocrit 30.7 % (37-47) Mean Corpuscular Volume 92.7 fL (80-100) Mean Corpuscular Hemoglobin 28.7 pg (25-34) Mean Corpuscular Hemoglobin Concent 30.9 g/dl (32-36) Platelet Count 244 K/uL (130-400) Mean Platelet Volume 8.1 fL (7.4-10.4) Neutrophils (%) (Auto) 69.2 % Lymphocytes (%) (Auto) 16.8 % Monocytes (%) (Auto) 13.0 % Eosinophils (%) (Auto) 0.6 % Basophils (%) (Auto) 0.0 % Neutrophils # (Auto) 3.26 K/uL (1.4-6.5) Lymphocytes # (Auto) 0.79 K/uL (1.2-3.4) Monocytes # (Auto) 0.61 K/uL (0.11-0.59) Eosinophils # (Auto) 0.03 K/uL (0-0.5) Basophils # (Auto) 0.00 K/uL (0-0.2) RDW Standard Deviation 52.5 fL (36.4-46.3) RDW Coefficient of Variation 15.4 % (11.5-14.5) Immature Granulocyte % (Auto) 0.4 % Immature Granulocyte # (Auto) 0.02 K/uL (0.00-0.02) Anion Gap 6.0 mmol/L (3-11) Est Creatinine Clear Calc Drug Dose 39.3 ml/min Estimated GFR () 76.2 Estimated GFR (Non- 65.7 BUN/Creatinine Ratio 13.9 (10-20) Calcium Level 8.7 mg/dl (8.5-10.1) Medications Administered Medications (Trade) Dose Ordered Sig/Geovani Route Start Time Stop Time Status Last Admin Dose Admin Ceftriaxone Sodium (Rocephin Inj) 1 gm NOW STAT IV 08/06/17 15:09 08/06/17 15:13 DC 08/06/17 15:28 1 GM ED Course The patient was evaluated. The patient's EMR medication list were reviewed. IV access was obtained. CBC and differential and renal profile was ordered. A wound culture was obtained and sent for evaluation. The patient was given Rocephin 1 g IV. The patient's labs are reviewed. I also obtained the patient' s labs from [facility] from August 03 for comparison. The patient's white count today was 4.71 and on 08/03 it was 4.68. The patient's hemoglobin today was 9.5 and 08/03 was 9.3. The patient's labs are stable. The patient's daughter also stated that she was told that the ER would set up an appointment with the wound DrMiller. This was not conveyed on the note from chiquita. I spoke with case management and I will fill out a form for referral to the wound care clinic for this patient. They will call her with an appointment. The the patient was independently evaluated by Dr. Hyman who agreed with treatment plan. The patient was discharged home in stable condition. Medical Decision Differential diagnosis include chronic wound versus acute bacterial infection of a chronic wound. Medication Reconcilliation Current Medication List: was personally reviewed by me Blood Pressure Screening Patient's blood pressure: Normal blood pressure Impression Primary Impression: Open wound of chest wall Departure Information Dispostion Home / Self-Care Condition GOOD Prescriptions Cephalexin Monohydrate (KEFLEX) 500 Mg Cap 500 MG PO QID for 10 Days, #40 CAP Prov: Tonie Rockwell PA-C 08/06/17 Referrals Joie Mtz M.D. (PCP) Forms HOME CARE DOCUMENTATION FORM, IMPORTANT VISIT INFORMATION, WORK / SCHOOL INSTRUCTIONS Patient Instructions My [facility] Additional Instructions Keep wound covered until drainage has stopped. Take Keflex as prescribed. Call in 48 hours for wound culture results. The wound clinic will be calling you to schedule an appointment. If you experience any high fevers, increased redness return to the ER immediately. Problem Qualifiers Primary Impression: Open wound of chest wall Encounter type: initial encounter Laterality: right Qualified Codes: S21.101A - Unspecified open wound of right front wall of thorax without penetration into thoracic cavity, initial encounter
--- NOTE | 2017-08-06 16:39 | EMERGENCY ROOM VISIT NOTE ---
ED Visit Note First contact with patient: 14:58 Patient was seen by our PA/ARC WELDING MACHINE OPERATOR. I was involved in the patient's care and did evaluate the patient myself. I was involved in the care throughout the ER stay. The patient presents with a potential infection to the sternal area. This issue has been ongoing. There is no leukocytosis or fever. She is stable. Cultures have been obtained, antibiotics have been given. She is being discharged to follow-up with the wound Center. If worsening, she can return.
[2017-08-06 17:26] VITALS: BP 136/70; PULSE 97; O2SAT 97
--- NOTE | 2017-08-09 12:33 | Pharmacy Progress Note ---
ED Pharmacist Culture FollowUp Date of Service: Aug 09, 2017. Patient was sent home with a prescription for Keflex 500mg PO QID x 10 days, which should cover the MSSA growing from the patient's surface wound culture of chest wound.
[2017-08-10] MEDS ORDERED: MIRT15TA2 PO (08:24)
[2017-08-10] MEDS ORDERED: MELO7.5T6 PO (08:24)
[2017-08-10] MEDS ORDERED: ONDA8TAB6 PO (08:24)
[2017-08-10] MEDS ORDERED: DXM/4 PO (08:24)
[2017-08-13] MEDS ORDERED: SULF800T23 PO (14:31)
[2017-08-24] MEDS ORDERED: SULF800T23 PO (09:08)
[2017-08-30] MEDS ORDERED: SULF800T23 PO (13:20)
== END 2017-08-06 17:27 | disposition home or self-care (01) ==
LOC: C.EDB 14:30
DX: S21.101A Unspecified open wound of right front wall of thorax without penetration into thoracic cavity, initial encounter (principal); X58.XXXA Exposure to other specified factors, initial encounter; Z85.3 Personal history of malignant neoplasm of breast; Z85.118 Personal history of other malignant neoplasm of bronchus and lung; Z79.82 Long term (current) use of aspirin; Z79.899 Other long term (current) drug therapy

== ENCOUNTER → 2017-09-08 | Outpatient (CLI) | payer OTHER, MEDICARE ==
[~2017-09-08] MED LIST changes: -ASPEC81 PO; +ASPI81TA21 PO; +DXM/4 PO; +HYDR25TA4 PO; +MELO7.5T6 PO; +MIRT15TA2 PO; -POLYSOL4 OP; -PROC1TAB5 PO; +SULF800T23 PO
--- NOTE | 2017-09-08 12:06 | DIAGNOSTIC IMAGING REPORT ---
PET/CT CLINICAL HISTORY: Lung cancer. COMPARISON STUDY: PET/CT dated 06/14/2017. TECHNIQUE: One hour following the IV administration of 14.66 mCi of F-18 FDG, PET/CT examination was performed from the orbital meatal line through the bony pelvis. Noncontrast CT is performed for the purposes of anatomic correlation and attenuation correction. Note that this does not reflect a diagnostic CT examination. Images were reviewed on a separate [employer] independent workstation. Fused images were obtained. Standard uptake values reported are maximum values within the region of interest expressed in gm/mL. The examination is degraded by motion artifact. FINDINGS: PET FINDINGS: Head and neck: There is expected physiologic activity within the visualized brain parenchyma at the skull base and the salivary glands. Activity localizing to the left thyroid lobe on image #46 is similar to previous. No corresponding thyroid lesion is seen end of the maximum SUV measures 2.3. Thorax: Evaluation of the thorax demonstrates expected physiologic myocardial activity. A mass lesion in the right lower lobe seen on image #86 has not significantly changed from previous. This measures approximate 5.5 x 2.5 cm (previously measured approximately 5 x 3 cm). This is markedly FDG avid with a maximum SUV of 7.4. Interstitial thickening and nodularity in the right lower lobe posterior to the mass lesion seen on image #90 demonstrates low level FDG activity and is concerning for lymphangitic spread of tumor. There is a maximum SUV of 1.8 within this region. Fibrotic change is seen in the ventral right upper lung, likely related to previous radiation treatment. This shows only low-level FDG activity the maximum SUV of 1.2. A precarinal lymph node image #71 measures 8 mm in short axis. This is FDG avid with a maximum SUV of 1.9. There is a suspected echogenic right hilar nodes seen on image #75. This measures 1.3 cm in short axis and demonstrates a maximum SUV of 2.1. An FDG avid subcarinal node on image #73 measures 1.5 cm in short axis and demonstrates a maximum SUV of 1.9. Permeative change is again seen within the body of the sternum on image #92. This remain FDG avid and demonstrates a maximum SUV of 3.7. Subcutaneous gas is now seen around this lesion. Abdomen and pelvis: There is expected activity within the liver, spleen, kidneys, renal collecting system, and bladder. Low-level bowel activity is likely within physical limits. Unenhanced CT images: The patient is cachectic. Partially imaged brain parenchyma the skull base is grossly normal in appearance. There is a right ocular lens implant. The visualized paranasal sinuses and the mastoid air cells are clear. The salivary glands are within normal limits. The thyroid gland is atrophic versus surgically absent. Atherosclerotic calcification is seen in the carotid bulbs. No cervical lymphadenopathy is identified. There is advanced atherosclerotic calcification of the thoracic aorta which is normal in caliber. The heart is normal in size and there is a small pericardial effusion. There is diffusely diminished attenuation of the cardiac blood pool as compared to the myocardium suggesting anemia. The coronary arteries are densely calcified. A moderate right pleural effusion is similar to previous. A calcified granuloma seen in the left lung base. Diffuse subpleural reticulation is identified. See above under PET findings for detailed parenchyma the malleus. The trachea is patent. The unenhanced liver, adrenal glands, kidneys, and spleen are grossly unremarkable. The pancreas is markedly atrophic. A punctate calcified gallstone is noted. The abdominal aorta is normal in caliber noting moderate to advanced atherosclerotic calcification. There is no bowel obstruction. There is mild colonic diverticulosis without CT evidence of acute diverticulitis. Moderate fecal retention is observed. No intraperitoneal free air or abdominal ascites is seen. There is no abdominal, pelvic, or inguinal lymphadenopathy. The bladder, uterus, and adnexa are normal as visualized. The skeletal structures are osteopenic. Degenerative change is present throughout the spine. The right breast is surgically absent. IMPRESSION: 1. No significant change in the size or FDG activity of a dominant right lower lobe pulmonary mass as compared to 06/14/2017. 2. Suspect lymphangitic spread of tumor throughout the right lower lobe, possibly progressive from previous. 3. FDG avid mediastinal and possibly right hilar nodes are again noted. The subcarinal node likely demonstrates diminished FDG uptake as compared to 06/14/2017. 4. A permeative an FDG avid lesion in the body of the sternum is similar to previous. Foci of overlying 16 is gas are now present. Clinical correlation will be required. 5. A moderate pleural effusion is similar to previous. 6. Nonspecific FDG activity localizing to the left thyroid lobe is unchanged and of indeterminant significance. Electronically signed by: Cj Velasquez M.D. 09/08/2017 12:04 PM Dictated Date/Time: 09/08/2017 11:44 AM
== END | disposition home or self-care (01) ==
LOC: C.PET 09:12
PROVIDERS: ATTEND Internal Medicine Hematology
DX: C34.31 Malignant neoplasm of lower lobe, right bronchus or lung (principal); C79.31 Secondary malignant neoplasm of brain

== ENCOUNTER → 2017-10-25 | Outpatient (CLI) | payer OTHER, MEDICARE ==
[~2017-10-25] MED LIST changes: -ATEN-173 PO; -ATOR10TA88 PO; -DXM/4 PO; +GADAVIST IV PRN; -MELO7.5T6 PO; -MIRT15TA2 PO; -ONDA8TAB6 PO
--- NOTE | 2017-10-25 12:22 | DIAGNOSTIC IMAGING REPORT ---
BRAIN COMBO HISTORY: 82 years-old Female LUNG CA WITH HX OF METASTATIC BRAIN CA, C34.31, C79.31 follow-up study in a patient with metastatic lung cancer COMPARISON: Brain MR 07/21/2017 TECHNIQUE: Multiplanar multisequence MRI of the brain was obtained both with and without the use of 5 mL Gadavist FINDINGS: There is no restricted diffusion to suggest acute ischemia. Midline structures including the corpus callosum, brainstem, optic chiasm, pituitary gland, infundibulum and pineal gland are unremarkable in the sagittal T1 sequence. No cerebellar tonsillar herniation. Degenerative changes are seen within the imaged upper cervical spine. There is no acute intracranial hemorrhage, midline shift or abnormal extra-axial collections. Mild to moderate atrophy redemonstrated. Mild pattern of ill-defined foci of increased T2/FLAIR signal again seen within the subcortical and periventricular white matter of the cerebral hemispheres bilaterally suggesting chronic microvascular ischemic changes. Several sequences are mildly motion degraded. The major flow voids at the level the skull base appear patent. Prior right-sided cataract repair. Trace right mastoid effusion. Mild mucosal thickening of the ethmoid air cells. Enhancing 5 x 3 x 3 mm cortically based lesion of the right parietal lobe is again seen on image 16 series 8 and image 15 series 9 which appears unchanged from comparison study 07/21/2015. Minimal surrounding vasogenic edema redemonstrated. No additional enhancing intra-axial or extra-axial masses identified. IMPRESSION: 1. Unchanged size and appearance of the cortically based enhancing metastatic lesion of the right parietal lobe measuring up to 5 mm. This is stable from comparison study 07/21/2017. 2. No new areas of intra-axial or extra-axial enhancement identified. 3. Chronic changes as above without acute intracranial abnormality. The above report was generated using voice recognition software. It may contain grammatical, syntax or spelling errors. Electronically signed by: Jose Lazaro M.D. 10/25/2017 12:20 PM Dictated Date/Time: 10/25/2017 12:11 PM
== END | disposition home or self-care (01) ==
LOC: C.MRI 10:37
PROVIDERS: ATTEND Physician Assistant Medical
DX: C34.31 Malignant neoplasm of lower lobe, right bronchus or lung (principal); C79.31 Secondary malignant neoplasm of brain

== ENCOUNTER → 2017-11-04 | Outpatient (CLI) | payer OTHER, MEDICARE ==
[~2017-11-04] MED LIST changes: +ACET-1257 PO; +ASPI-319 PO; -ASPI81TA21 PO; +CEPH-571 PO; +CEPH500C PO; -GADAVIST IV PRN; +RANI150T3 PO
[2017-11-04 12:56] VITALS: BP 130/98; PULSE 96; TEMP 36.5; O2SAT 96
--- NOTE | 2017-11-04 13:47 | Radiation Oncology Follow-Up ---
Radiation Oncology Follow-Up Date of Visit Nov 04, 2017. Reason For Visit 6 month follow-up Radiation Completion Date SBRT - 10/15/16 Diagnosis (1) Breast cancer Status: Resolved Permanent Comment: Treatment Notes: Diagnosed at the age of 21. Treated with mastectomy and postmastectomy radiation therapy with no evidence of recurrence. Radiation therapy at [facility] Last Edited By: Emily Mtz on Sep 25, 2016 15 :05 (2) Lung cancer Status: Resolved Location: brain metastasis Stage: IV Permanent Comment: STAGING: Lung, RML, NSCLC, [id number], stage IV with solitary brain metastasis Treatment: Status post stereotactic radiation therapy completed 10/15/2016 received 1800 cGy Last Edited By: Niru Haji on Dec 02, 2016 14:37 History of Present Illness Ms. Cyr has a remote history of right breast cancer treated with mastectomy and postmastectomy radiation therapy 60 years ago. More recently, she was complaining of a cough and did have a chest x-ray performed by her primary care physician which revealed a right lung mass. The patient then underwent CT staging scans of the chest abdomen pelvis on 08/06/2016 which showed a right lung mass, and large subcarinal lymph node and subcentimeter paratracheal lymph nodes but no evidence of distant metastatic disease. The patient underwent a PET/CT scan on 08/17/2016 which did reveal a 6.3 cm FDG avid right lower lobe mass consistent with bronchogenic malignancy. Also noted was a single FDG avid 1.7 cm subcarinal lymph node. There is no evidence of any distant metastatic disease. The patient was subsequently referred to Dr. Gleason who recommended a CT guided needle biopsy which completed in 08/21/2016 which revealed poorly differentiated non-small cell lung carcinoma. The patient was then brought for a bronchoscopy on 08/28/2016 to biopsy the subcarinal lymph node and this lymph node was biopsied in addition to levels L4, station 7 and station 10. The biopsies of all the lymph nodes were positive for metastatic poorly differentiated non-small cell lung carcinoma. The patient was subsequently referred to Dr. Gavino Mtz for consideration of upfront chemotherapy due to the patient's previous history of radiation therapy to the right chest. Dr. Mtz completed the staging workup with a MRI of the brain which was completed on 09/16/2016 which revealed a 7 mm enhancing lesion in the right frontal lobe with mild associated vasogenic edema. We are now seeing the patient in consultation discuss the role of radiation therapy. Currently, the patient's relatively well overall. She denies any headaches or any focal neurologic deficits. She states she continues to have a cough. She denies any hemoptysis. She denies any fevers, chills or night sweats. She other complaints. Her studies were reviewed and she was found to be a candidate for stereotactic radiation therapy. This was given 10/15/2016. She received 1800 cG Interim History She's been doing well over the past 6 months. She denies any problems with headaches. There is been no change in vision. She has general weakness of the upper and lower extremities. There is no focal deficits that have developed. She continues on treatment with Opdivo. She has treatments every 2 weeks. She is tolerating this well. She stated she has had recheck PET scan and this showed that everything is stable. She had a recheck MRI of the brain 2016. She is here for review of the MRI. Allergies Coded Allergies: Nickel (Verified Allergy, Severe, rash, 10/06/17) Ibuprofen (Verified Allergy, Intermediate, HIVES, 10/06/17) PER RECORDS Penicillins (Verified Allergy, Intermediate, RASH, 10/06/17) Latex1 -Allergic Contact Dermititis (Verified Allergy, Mild, RASH, 10/06/17 ) Adhesives (Verified Adverse Reaction, Intermediate, RASH, 10/06/17) PER RECORDS Lisinopril (Verified Adverse Reaction, Mild, COUGH, 10/06/17) PER RECORDS Home Medications Scheduled Aspirin Enteric Coated (Ecotrin Or Generic), 81 MG PO DAILY Levothyroxine Sodium (Levothyroxine Sodium), 1 TAB PO DAILY Nitroglycerin (Nitrostat), 0.4 MG UT PRN Sulfa/Trimethoprim (Bactrim Ds 800MG/160MG), 1 TAB PO BID Scheduled PRN Acetaminophen (Tylenol Extra Strength), 2 TAB PO TID PRN for Pain Esomeprazole Magnesium (Nexium), 40 MG PO QAM PRN for ACID REFLUX Review of Systems Gastrointestinal: Symptoms: WNL Oral: Symptoms: No Problems Respiratory: Symptoms: WNL, Dry Cough, SOB With Exertion Other Respiratory: MANDEL & Dry Cough Urinary: Symptoms: WNL Skin: Symptoms: No Problems Other Skin Symptoms: Wound on right chest wall being care for by home nursing - [facility] Physical Exam Vital Signs Date Time Temp Pulse Resp B/P (MAP) Pulse Ox O2 Delivery O2 Flow Rate FiO2 11/04/17 12:56 36.5 96 16 130/98 96 General Appearance: no apparent distress, + thin Eyes: normal inspection, EOMI ENT: normal ENT inspection, hearing grossly normal Neck: no adenopathy, thyroid normal Respiratory/Chest: no respiratory distress, no accessory muscle use, + decreased breath sounds Cardiovascular: regular rate, rhythm, no gallop, no murmur Extremities: + pedal edema (+1) Neurologic/Psychiatric: no motor/sensory deficits, alert, normal mood/affect Skin: warm/dry Pain Management Patient Reports Pain: Yes Initial Pain Intensity: 8 Pain Management Plan Patient is currently comfortable and expressing no signs of pain. 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 This is being followed by the wound clinic. Pain medication her her primary care physician and medical oncology. Imaging Imaging Studies: were reviewed, and pertinent findings noted below Imaging Comments Patient: THOMAS CYR Address1: [address] [place] [address] Rec: [id number] Address2: Acct ID: [id number] [facility] Zip: [place] [address] Date: 1935 Sex: F Room/Bed: Ref Phy: Joie Mtz M.D. SC: C.MRI Att Phy: Niru Haji PA-C Report #: [id number] Svetlana Phy: Joie Mtz M.D. Test: [facility] Admit Phy: Reproduction Technician: JOSE Interpreting Phy: Gil Lazaro D.O. Diagnosis: LUNG CA WITH HX OF METASTATIC BRAIN CA Ordering Phy: Niru Haji PA-C Service Date: 10/25/17 Admit Date: 10/25/17 MNE: [id number] CONF: DICTATED BY: Gil Lazaro D.O.]] CC: Niru Haji PA-C Patel, Manisha N., M.D. Endcc: [~ rep ct add3]] BRAIN COMBO HISTORY: 82 years-old Female LUNG CA WITH HX OF METASTATIC BRAIN CA, C34.31, C79.31 follow-up study in a patient with metastatic lung cancer COMPARISON: Brain MR 07/21/2017 TECHNIQUE: Multiplanar multisequence MRI of the brain was obtained both with and without the use of 5 mL Gadavist FINDINGS: There is no restricted diffusion to suggest acute ischemia. Midline structures including the corpus callosum, brainstem, optic chiasm, pituitary gland, infundibulum and pineal gland are unremarkable in the sagittal T1 sequence. No cerebellar tonsillar herniation. Degenerative changes are seen within the imaged upper cervical spine. There is no acute intracranial hemorrhage, midline shift or abnormal extra-axial collections. Mild to moderate atrophy redemonstrated. Mild pattern of ill-defined foci of increased T2/FLAIR signal again seen within the subcortical and periventricular white matter of the cerebral hemispheres bilaterally suggesting chronic microvascular ischemic changes. Several sequences are mildly motion degraded. The major flow voids at the level the skull base appear patent. Prior right-sided cataract repair. Trace right mastoid effusion. Mild mucosal thickening of the ethmoid air cells. Enhancing 5 x 3 x 3 mm cortically based lesion of the right parietal lobe is again seen on image 16 series 8 and image 15 series 9 which appears unchanged from comparison study 07/21/2015. Minimal surrounding vasogenic edema redemonstrated. No additional enhancing intra-axial or extra-axial masses identified. IMPRESSION: 1. Unchanged size and appearance of the cortically based enhancing metastatic lesion of the right parietal lobe measuring up to 5 mm. This is stable from comparison study 07/21/2017. 2. No new areas of intra-axial or extra-axial enhancement identified. 3. Chronic changes as above without acute intracranial abnormality. The above report was generated using voice recognition software. It may contain grammatical, syntax or spelling errors. Electronically signed by: Jose Lazaro M.D. 10/25/2017 12:20 PM Dictated Date/Time: 10/25/2017 12:11 PM Assessment & Plan Plan: The images have been reviewed by Dr. Mtz. Results were reviewed with the patient. These are stable. Recommendation was for a recheck MRI in 6 months and he follow-up visit after the MRI. She continues follow-up with medical oncology and treatment with Opdivo. Her daughter had requested lorazepam prior to the MRI. She will call closer to the time of her study for a prescription. She wasn't sure of the dose. She may call our office if she has any questions or concerns in the interim. We discussed strengthening exercises for the lower extremities. Total Time In Follow-Up I spent 20 minutes speaking to the patient performing examination. I spent 15 minutes reviewing information in completing this note. Copy To Gavino Mtz M.D.; Joie Mtz M.D.; Aline Vazquez CRNP Problem Qualifiers (1) Lung cancer: Laterality: right Lung location: middle lobe of lung Qualified Codes: C34.2 - Malignant neoplasm of middle lobe, bronchus or lung
== END | disposition home or self-care (01) ==
LOC: C.ONC 12:44
PROVIDERS: ATTEND Physician Assistant Medical
DX: Z08 Encounter for follow-up examination after completed treatment for malignant neoplasm (principal); Z92.3 Personal history of irradiation; Z85.3 Personal history of malignant neoplasm of breast; Z85.118 Personal history of other malignant neoplasm of bronchus and lung

== ENCOUNTER → 2017-11-07 | Outpatient (CLI) | payer OTHER, MEDICARE ==
[~2017-11-07] MED LIST changes: -ASPI-319 PO; +ASPI81TA21 PO; -CEPH-571 PO; -CEPH500C PO; -HYDR25TA4 PO; -RANI150T3 PO
--- NOTE | 2017-11-07 11:08 | DIAGNOSTIC IMAGING REPORT ---
CHEST 2 VIEWS ROUTINE HISTORY: 82 years-old Female J90 Pleural effusion follow-up study in a patient with pleural effusion. COMPARISON: Chest radiographs 08/02/2017, PET CT 09/08/2017 TECHNIQUE: PA and lateral views of the chest FINDINGS: Mass of the right lower lobe is partially obscured by moderate right pleural effusion and right basilar opacities with pleural effusion slightly progressed. Unchanged pleural parenchymal scarring of the right lung apex. Chronic bilateral reticular opacities redemonstrated. Hazy left basilar opacities suggest atelectasis. Degenerative changes are seen within the right shoulder and spine. IMPRESSION: 1. Mass of the right lower lobe is partially obscured by the moderate right-sided moderate pleural effusion which has slightly increased in size from comparison. 2. Bibasilar opacities suggest atelectasis. 3. Chronic interstitial lung disease. The above report was generated using voice recognition software. It may contain grammatical, syntax or spelling errors. Electronically signed by: Jose Lazaro M.D. 11/07/2017 11:07 AM Dictated Date/Time: 11/07/2017 11:03 AM
== END | disposition home or self-care (01) ==
LOC: C.RAD 10:44
PROVIDERS: ATTEND Physician Assistant
DX: J90 Pleural effusion, not elsewhere classified (principal)

== ENCOUNTER → 2017-12-15 | Outpatient (CLI) | payer OTHER, MEDICARE ==
--- NOTE | 2017-12-15 13:34 | DIAGNOSTIC IMAGING REPORT ---
PET/CT CLINICAL HISTORY: Non-small cell lung cancer. TECHNIQUE: A PET/CT was performed from the skull base through the upper thighs following intravenous injection of 12.33 mCi of F 18 FDG IV. The injection was performed at 8:50 AM on December 15, 2017 and imaging began at 9:58 AM on December 15, 2017. Unenhanced CT was performed for attenuation correction purposes and anatomic localization. COMPARISON STUDY: PET/CT September 08, 2017. FINDINGS: Head and neck: No suspicious FDG uptake is identified within neck. There is no cervical lymphadenopathy. Prominent left supraclavicular lymph nodes are similar to prior exam of September 08, 2017. Chest: The right lower lobe mass has significantly increased in size since PET/CT of September 08, 2017. This mass now measures 7.1 x 4.3 cm. It previously measured 5.5 x 2.5 cm. FDG uptake within this mass has slightly increased with an SUV max of 9. It previously measured 8.4. Mild FDG uptake within precarinal, subcarinal and right hilar lymph nodes is similar to prior PET/CT. SUV max of the right hilum is 2. A large right pleural effusion has increased in size since PET/CT of September 08, 2017. Subpleural right upper lobe opacity with bronchiectasis suggests scarring, likely on the basis of radiation. The patient is status post right mastectomy. There is no pneumothorax. The heart is moderately enlarged. There is no pericardial effusion. Abdomen and Pelvis: No abnormal FDG uptake is identified within the abdomen or the pelvis. There is no abdominal or pelvic lymphadenopathy. The appearance of the abdomen and pelvis is unchanged. Mild bilateral adrenal gland nodularity is unchanged. There is no significant adrenal gland FDG uptake. SUV max for the right adrenal gland is 1.7. Musculoskeletal: Note is again made of mild FDG uptake and associated soft tissue gas within the right inferior aspect of the sternum. The SUV max is 3. This has slightly diminished since prior exam. IMPRESSION: 1. Significant increase in size of the right lower lobe carcinoma. Marked FDG uptake which has slightly increased since prior PET/CT of September 08, 2017. 2. Large right pleural effusion which has moderately increased in size. 3. No change in mild FDG uptake within precarinal, subcarinal and right hilar lymph nodes which favors iman spread of disease. 4. Slight decrease in FDG uptake within the right inferior sternum and adjacent soft tissues with soft tissue gas since prior PET/CT. This is nonspecific and could be correlated with physical exam to exclude an infectious process as this appears to involve the skin. Electronically signed by: Enrique De La Torre M.D. 12/15/2017 1:33 PM Dictated Date/Time: 12/15/2017 11:44 AM
== END | disposition home or self-care (01) ==
LOC: C.PET 07:57
PROVIDERS: ATTEND Internal Medicine Hematology
DX: J90 Pleural effusion, not elsewhere classified (principal); C34.31 Malignant neoplasm of lower lobe, right bronchus or lung; C79.31 Secondary malignant neoplasm of brain

== ENCOUNTER → 2018-02-07 | Outpatient (CLI) | payer OTHER, MEDICARE ==
--- NOTE | 2018-02-07 09:27 | DIAGNOSTIC IMAGING REPORT ---
CHEST 2 VIEWS ROUTINE CLINICAL HISTORY: J90 Pleural [id number] dyspnea COMPARISON STUDY: 11/07/2017 FINDINGS: Unchanged exam compared to the prior study. Masslike changes right base combined with a right pleural effusion is similar. Pleural reactive change right apex is unaltered. ParaTracheal interstitial changes stable. Left lung remains clear. IMPRESSION: Stable chest with no change in the prior exam. No new or interval findings. Possible slight increase in masslike process of the right infrahilar region although this area is partially obscured, as before, by the right effusion. The above report was generated using voice recognition software. It may contain grammatical, syntax or spelling errors. Electronically signed by: Jhon Rockwell M.D. 02/07/2018 9:25 AM Dictated Date/Time: 02/07/2018 9:23 AM
== END | disposition home or self-care (01) ==
LOC: C.RAD1850 09:09
PROVIDERS: ATTEND Physician Assistant
DX: J90 Pleural effusion, not elsewhere classified (principal)

== ENCOUNTER 2018-04-22 23:14 | Emergency (ER) | payer OTHER, MEDICARE ==
[~2018-04-22] VITALS: Ht 171.5 cm; Wt 46.6 kg
[~2018-04-22 23:14] MED LIST changes: +ASPI-319 PO; -ASPI81TA21 PO
[2018-04-22 23:23] VITALS: TEMP 36.6; O2SAT 96; Ht 171.5 cm; Wt 46.6 kg
[2018-04-22 23:43] LABS: EOS % 0.5 %; EOS ABS # 0.03 K/uL (0-0.5); HEMOGLOBIN 11.5 g/dL (12.0-16.0); IG# 0.02 K/uL (0.00-0.02); LYMPH % 18.8 %; LYMPH ABS # 1.24 K/uL (1.2-3.4); MEAN CELL VOLUME 90.7 fL (80-100); MEAN CORPUSCULAR HGB CONC 31.9 g/dl (32-36); MEAN PLATELET VOLUME 8.1 fL (7.4-10.4); MONO % 8.5 %; MONO ABS # 0.56 K/uL (0.11-0.59); NEUT % 71.9 %; NEUT ABS # 4.76 K/uL (1.4-6.5); PLATELET COUNT 298 K/uL (130-400); RED CELL DISTRIBUTION WIDTH CV 15.1 % (11.5-14.5); RED CELL DISTRIBUTION WIDTH SD 50.4 fL (36.4-46.3); WHITE BLOOD COUNT 6.61 K/uL (4.8-10.8)
[2018-04-22] MEDS ORDERED: SODIUM CHLORIDE 0.9% 500ML 500 ML IV STA (23:53)
[2018-04-22] MEDS ORDERED: ONDANSETRON INJ 2 MG/ML 2 ML VIAL IV STA (23:55)
[2018-04-22] MEDS ORDERED: LIDOCAINE HCL 2% VISC SOLN 20 ML UDC PO STA (23:55)
[2018-04-22] MEDS ORDERED: ALUMINUM/MAGNESIUM SUSP 30 ML UDC PO STA (23:55)
[2018-04-22 23:58] LABS: PTT PATIENT 31.7 SECONDS (21.0-31.0)
--- NOTE | 2018-04-23 00:03 | EMERGENCY ROOM VISIT NOTE ---
History Report prepared by Da: Donald Chen Under the Supervision of: Dr. Suzi Ibarra M.D. First contact with patient: 23:22 Chief Complaint: CHEST PAIN Stated Complaint: CHEST PAIN History of Present Illness The patient is an 82 year old female who presents to the Emergency Room with complaints of persistent chest pain since this afternoon. She notes her pain was worse after she took a nap. She denies arm pain. She rates her pain a 5/10 in severity. She states that she sleeps with her feet propped up. She has a wound on her chest. She has metastatic lung cancer. She has a history of breast cancer. She had radiation therapy in the 1950s due to breast cancer. She has a brain lesion. She discontinued chemotherapy and immunotherapy in November 2017 with regards to her lung cancer. She denies any history of cardiac stents. She denies history of smoking. She denies any fevers or vomiting. She reports nausea. She has not been passing gas or had any bowel movements today. She ate toast and jelly in the morning. She had pasta salad and lemonade for lunch. She had pork with sauerkraut and mashed potatoes for dinner. When asked if she wants life intervening mechanisms, the patient declined. Source of History: patient Onset: since this afternoon Position: chest Symptom Intensity: 5/10 Timing: other (persistent) Associated Symptoms: + nausea, No fevers, No vomiting Note: Denies any arm pain. Review of Systems See HPI for pertinent positives & negatives. A total of 10 systems reviewed and were otherwise negative. Past Medical & Surgical Medical Problems: (1) Breast cancer (2) CAD (coronary artery disease) (3) HTN (hypertension) (4) Lung cancer (5) Osteomyelitis Family History Cancer Heart disease Hypertension Lung disease Social History Smoking Status: Never Smoker Smokeless Tobacco Use: No Alcohol Use: none Drug Use: none Marital Status: Housing Status: lives with family Occupation Status: retired Current/Historical Medications Scheduled Aspirin Enteric Coated (Ecotrin Or Generic), 81 MG PO DAILY Levothyroxine Sodium (Levothyroxine Sodium), 75 MCG PO DAILY Nitroglycerin (Nitrostat), 0.4 MG UT PRN Ranitidine Hcl (Zantac), 150 MG PO q evening Sulfa/Trimethoprim (Bactrim Ds 800MG/160MG), 1 TAB PO BID Scheduled PRN Acetaminophen (Tylenol Extra Strength), 2 TAB PO TID PRN for Pain Esomeprazole Magnesium (Nexium), 40 MG PO QAM PRN for ACID REFLUX Allergies Coded Allergies: Nickel (Verified Allergy, Severe, rash, 10/06/17) Ibuprofen (Verified Allergy, Intermediate, HIVES, 10/06/17) PER RECORDS Penicillins (Verified Allergy, Intermediate, RASH, 10/06/17) Latex1 -Allergic Contact Dermititis (Verified Allergy, Mild, RASH, 10/06/17 ) Adhesives (Verified Adverse Reaction, Intermediate, RASH, 10/06/17) PER RECORDS Lisinopril (Verified Adverse Reaction, Mild, COUGH, 10/06/17) PER RECORDS Physical Exam Vital Signs Date Time Temp Pulse Resp B/P (MAP) Pulse Ox O2 Delivery O2 Flow Rate FiO2 04/23/18 01:49 100 20 110/63 95 Room Air 04/23/18 00:30 105 20 110/57 95 Room Air 04/22/18 23:55 111 04/22/18 23:23 36.6 110 23 142/72 96 Room Air 04/22/18 23:23 96 Room Air Physical Exam Vital signs reviewed. General: Chronically ill cachectic, in no significant distress. HEENT: No scleral icterus, PERRLA, neck supple. Atraumatic. Cardiovascular: Tachycardic rate and regular rhythm, no extra sounds. Pulmonary: Diminished breath sounds, right greater than left base, crackles towards apex, normal work of breathing. Abdomen: Soft, nontender, nondistended, positive bowel sounds. Musculoskeletal: Atraumatic, no peripheral edema. Dressing to anterior chest wall Neurologic: Patient awake alert and oriented x 3 Skin: Warm, dry, no rash Medical Decision & Procedures ER Provider Diagnostic Interpretation: Radiology results as stated below per my review and radiologist interpretation: Chest XR: Large right pleural effusion. Little area of aerated lung on the right appreciated. No focal infiltrate or effusion on the left. Laboratory Results 04/22/18 23:30 Red Blood Count 3.97, Mean Corpuscular Volume 90.7, Mean Corpuscular Hemoglobin 29.0, Mean Corpuscular Hemoglobin Concent 31.9, Mean Platelet Volume 8.1, Neutrophils (%) (Auto) 71.9, Lymphocytes (%) (Auto) 18.8, Monocytes (%) (Auto) 8.5, Eosinophils (%) (Auto) 0.5, Basophils (%) (Auto) 0.0, Neutrophils # (Auto) 4.76, Lymphocytes # (Auto) 1.24, Monocytes # (Auto) 0.56, Eosinophils # (Auto) 0.03, Basophils # (Auto) 0.00 04/22/18 23:30 Test 04/22/18 23:30 04/23/18 00:00 White Blood Count 6.61 K/uL (4.8-10.8) Red Blood Count 3.97 M/uL (4.2-5.4) Hemoglobin 11.5 g/dL (12.0-16.0) Hematocrit 36.0 % (37-47) Mean Corpuscular Volume 90.7 fL (80-100) Mean Corpuscular Hemoglobin 29.0 pg (25-34) Mean Corpuscular Hemoglobin Concent 31.9 g/dl (32-36) Platelet Count 298 K/uL (130-400) Mean Platelet Volume 8.1 fL (7.4-10.4) Neutrophils (%) (Auto) 71.9 % Lymphocytes (%) (Auto) 18.8 % Monocytes (%) (Auto) 8.5 % Eosinophils (%) (Auto) 0.5 % Basophils (%) (Auto) 0.0 % Neutrophils # (Auto) 4.76 K/uL (1.4-6.5) Lymphocytes # (Auto) 1.24 K/uL (1.2-3.4) Monocytes # (Auto) 0.56 K/uL (0.11-0.59) Eosinophils # (Auto) 0.03 K/uL (0-0.5) Basophils # (Auto) 0.00 K/uL (0-0.2) RDW Standard Deviation 50.4 fL (36.4-46.3) RDW Coefficient of Variation 15.1 % (11.5-14.5) Immature Granulocyte % (Auto) 0.3 % Immature Granulocyte # (Auto) 0.02 K/uL (0.00-0.02) Prothrombin Time 10.3 SECONDS (9.0-12.0) Prothromb Time International Ratio 1.0 (0.9-1.1) Activated Partial Thromboplast Time 31.7 SECONDS (21.0-31.0) Partial Thromboplastin Ratio 1.2 Anion Gap 5.0 mmol/L (3-11) Est Creatinine Clear Calc Drug Dose 29.9 ml/min Estimated GFR () 57.8 Estimated GFR (Non- 49.9 BUN/Creatinine Ratio 12.5 (10-20) Calcium Level 8.3 mg/dl (8.5-10.1) Total Bilirubin 0.4 mg/dl (0.2-1) Direct Bilirubin 0.2 mg/dl (0-0.2) Aspartate Amino Transf (AST/SGOT) 18 U/L (15-37) Alanine Aminotransferase (ALT/SGPT) 7 U/L (12-78) Alkaline Phosphatase 118 U/L (45-117) Troponin I < 0.015 ng/ml (0-0.045) Total Protein 7.4 gm/dl (6.4-8.2) Albumin 2.8 gm/dl (3.4-5.0) Thyroid Stimulating Hormone (TSH) 68.100 uIu/ml (0.300-4.500) Free Thyroxine 0.67 ng/dl (0.80-1.60) Free Triiodothyronine 1.09 pg/ml (2.30-4.20) Urine Color YELLOW Urine Appearance CLEAR (CLEAR) Urine pH 7.5 (4.5-7.5) Urine Specific [place] 1.021 (1.000-1.030) Urine Protein NEG (NEG) Urine Glucose (UA) NEG (NEG) Urine Ketones NEG (NEG) Urine Occult Blood NEG (NEG) Urine Nitrite NEG (NEG) Urine Bilirubin NEG (NEG) Urine Urobilinogen NEG (NEG) Urine Leukocyte Esterase TRACE (NEG) Urine WBC (Auto) 1-5 /hpf (0-5) Urine RBC (Auto) 0-4 /hpf (0-4) Urine Hyaline Casts (Auto) 1-5 /lpf (0-5) Urine Epithelial Cells (Auto) >30 /lpf (0-5) Urine Bacteria (Auto) 1+ (NEG) Laboratory results per my review. Medications Administered Medications (Trade) Dose Ordered Sig/Geovani Route Start Time Stop Time Status Last Admin Dose Admin Sodium Chloride 500 ml @ 999 mls/hr Q31M STAT IV 04/22/18 23:53 04/23/18 00:23 DC 04/23/18 00:45 999 MLS/HR Lidocaine HCl (Viscous Lidocaine 2% Soln) 10 ml NOW STAT PO 04/22/18 23:55 04/22/18 23:56 DC 04/23/18 00:39 10 ML Al Hydroxide/Mg Hydroxide (Maalox Susp) 30 ml NOW STAT PO 04/22/18 23:55 04/22/18 23:56 DC 04/23/18 00:39 30 ML Ondansetron HCl (Zofran Inj) 4 mg NOW STAT IV 04/22/18 23:55 04/22/18 23:56 DC 04/23/18 00:39 4 MG Famotidine (Pepcid 20mg Iv Push) 20 mg ONE STAT IV 04/23/18 01:31 04/23/18 01:32 DC 04/23/18 01:37 20 MG ECG Per My Interpretation Indication: chest pain Rate (beats per minute): 113 Rhythm: sinus tachycardia Findings: no acute ischemic change, no ectopy, other (Poor quality baseline for interpretation. Intraventricular conduction delay) ED Course 2331: Past medical records reviewed. The patient was evaluated in room B7. A complete history and physical examination was performed. 2353: Ordered Sodium Chloride 500 ml @ 999 mls/hr IV 2355: Ordered Zofran 4 mg IV, Maalox 30 ml PO, and Lidocaine HCl 10 ml PO 0131: Ordered Pepcid 20 mg IV 0215: I reassessed the patient at this time. We reiterated the importance of Advanced Directives. I spoke to her with regards to taking her Nexium daily and to hold off on her Aspirin for a few days. She will follow up with her PCP. I answered all pertaining questions that she had. She expressed understanding and verbalized agreement. The patient will be discharged home. Medical Decision Differential diagnosis: Etiologies such as cardiac ischemia, aortic dissection, pulmonary embolism, pneumonia, pneumothorax, musculoskeletal, infections, pericarditis, myocarditis , esophageal rupture, gastrointestinal, as well as others were entertained. This patient was evaluated and appeared to be in no significant distress. IV access was obtained and laboratory work was drawn. Patient was hydrated with normal saline solution. Patient was given a GI cocktail, IV Zofran. EKG reveals no evidence of acute ischemia. Laboratory work is negative. We had extensive conversations regarding advanced directives as the patient's daughter stated she had her cancel several doctor's appointments today. She has stopped taking some medications and is no longer being treated for her cancer. The patient initially had some disconnect, stating she was concerned she would of a heart attack, as her sisters did. Although nothing was formally decided tonight, it seems that the patient and her daughter have a better understanding. They will contact the PCP regarding palliative interventions. Currently the patient seems comfortable with the plan for discharge. There does not seem to be any evidence of acute coronary disease currently. Patient was offered evaluation by the hospitalist for cardiac rule out however she has declined stating that she would like to go home. She will return to the ED for worsening of symptoms or any medical concerns. Medication Reconcilliation Current Medication List: was personally reviewed by me Blood Pressure Screening Patient's blood pressure: Elevated blood pressure Blood pressure disposition: Elevated BP felt to be situational Impression Primary Impression: Non-cardiac chest pain Additional Impression: Gastritis Scribe Attestation The scribe's documentation has been prepared under my direction and personally reviewed by me in its entirety. I confirm that the note above accurately reflects all work, treatment, procedures, and medical decision making performed by me. Departure Information Dispostion Home / Self-Care Prescriptions Ranitidine Hcl (ZANTAC) 150 Mg Tab 150 MG PO q evening, #30 TAB Prov: Suzi Ibarra M.D. 04/23/18 Referrals Joie Mtz M.D. (PCP) Forms HOME CARE DOCUMENTATION FORM, IMPORTANT VISIT INFORMATION Patient Instructions My [facility] Additional Instructions Diagnosis: Non-cardiac chest pain, gastritis Stop aspirin for 3 days. Continue Nexium daily as prescribed. Zantac 150 mg each evening. Consider consultation with Dr. Gleason regarding the pleural drain. Please contact your primary care physician for follow-up and discuss advanced directives (wishes for medical care). Return to the ED for worsening of symptoms or any medical concerns. Problem Qualifiers
[2018-04-23 00:12] LABS: ALBUMIN 2.8 gm/dl (3.4-5.0); ALKALINE PHOSPHATASE 118 U/L (45-117); ALT/SGPT 7 U/L (12-78); AST/SGOT 18 U/L (15-37); BLOOD UREA NITROGEN 13 mg/dl (7-18); CALCIUM 8.3 mg/dl (8.5-10.1); CARBON DIOXIDE 28 mmol/L (21-32); CREATININE 1.03 mg/dl (0.60-1.20); GLUCOSE 110 mg/dl (70-99); POTASSIUM 4.1 mmol/L (3.5-5.1); SODIUM 133 mmol/L (136-145); TOTAL PROTEIN 7.4 gm/dl (6.4-8.2)
[2018-04-23] MEDS ORDERED: FAMOTIDINE 20MG/5ML IV PUSH IV STA (01:31)
[2018-04-23 01:49] VITALS: BP 110/63; PULSE 100; O2SAT 95
[2018-04-23] MEDS ORDERED: RANI150T3 PO (02:32)
--- NOTE | 2018-04-23 08:05 | DIAGNOSTIC IMAGING REPORT ---
CHEST ONE VIEW PORTABLE HISTORY: Atypical chest pain COMPARISON: Chest 02/07/2018. FINDINGS: Increase in size in the large right pleural effusion which is likely partially loculated. The heart remains mildly enlarged. Diffuse interstitial thickening persists. No pneumothorax. Old, healed right-sided rib fractures. The right lower lobe mass is partially obscured by the pleural effusion. IMPRESSION: Increase in size in the large right pleural effusion which partially obscures the right lower lobe mass. Electronically signed by: Keagan Sterling M.D. 04/23/2018 8:04 AM Dictated Date/Time: 04/23/2018 8:03 AM
== END 2018-04-23 02:40 | disposition home or self-care (01) ==
LOC: C.EDB 23:15
DX: R07.89 Other chest pain (principal); K29.70 Gastritis, unspecified, without bleeding; R00.0 Tachycardia, unspecified; I10 Essential (primary) hypertension; Z79.82 Long term (current) use of aspirin; Z79.899 Other long term (current) drug therapy; Z91.048 Other nonmedicinal substance allergy status; Z88.6 Allergy status to analgesic agent; Z88.0 Allergy status to penicillin; Z88.8 Allergy status to other drugs, medicaments and biological substances; Z91.040 Latex allergy status